=== PATIENT | male | born 1985 | race Caucasian/White ===

== ENCOUNTER 2024-12-15 18:33 | Emergency (ER) | payer MEDICAID ==
[~2024-12-15] VITALS: Ht 180.3 cm; Wt 79.0 kg
[~2024-12-15 18:33] MED LIST: NOCURR
[2024-12-15 18:38] VITALS: TEMP 97.3
[2024-12-15] MEDS: DOXYCYCLINE HYCLATE 100 MG TABLET PO ONE (19:35)
[2024-12-15] MEDS ORDERED: DOXY-354 PO (19:49)
[2024-12-15 20:03] VITALS: BP 135/78; PULSE 85; RESP 16; O2SAT 99
== END 2024-12-15 20:05 | disposition home or self-care (01) ==
LOC: EMS 18:33
DX: S50.361A Insect bite (nonvenomous) of right elbow, initial encounter (principal); L03.113 Cellulitis of right upper limb; F12.90 Cannabis use, unspecified, uncomplicated; Z79.899 Other long term (current) drug therapy; F17.210 Nicotine dependence, cigarettes, uncomplicated; W57.XXXA Bitten or stung by nonvenomous insect and other nonvenomous arthropods, initial encounter; Y93.89 Activity, other specified; Y92.89 Other specified places as the place of occurrence of the external cause; Y99.8 Other external cause status
CPT/HCPCS: 99283